=== PATIENT | male | born 1945 | race Caucasian/White ===

== ENCOUNTER 2022-06-17 15:12 | Inpatient (IN) | payer OTHER ==
[2022-06-17 16:14] LABS: Absolute Lymphocytes (CBC) 1.4 K/uL (0.7-4.9); Hematocrit 39.8 % (39.6-49.0); Lymphocytes % 22.4 % (15.3-44.8); MCV 96.7 fL (80-100); MPV 7.3 fL (7.6-11.3); RBC Red Blood Cell Count 4.11 M/uL (4.33-5.43)
[2022-06-17 16:18] LABS: Protime INR 1.09
[2022-06-17] MEDS ORDERED: AMIODARONE HCL 150 MG/3 ML INJ IV ONE (16:25)
[2022-06-17] MEDS ORDERED: D5W 100 ML IV ONE (16:26)
[2022-06-17 16:33] LABS: SARS-CoV-2 Antigen Rapid Res Negative (Negative)
[2022-06-17 16:36] LABS: Albumin 4.1 g/dL (3.4-5.0); Bilirubin Direct 0.2 mg/dL (0-0.2); Bilirubin Total 0.5 mg/dL (0.2-1.0); Magnesium 2.4 mg/dL (1.6-2.4); Protein, Total 7.4 g/dL (6.4-8.2); Troponin High Sensitivity 12.4 pg/mL (<58.9)
--- NOTE | 2022-06-17 16:56 | RAD REPORT ---
EXAM DESCRIPTION: RAD - Chest Single View - 06/17/2022 4:30 pm CLINICAL HISTORY: CHEST PAIN COMPARISON: No comparisons FINDINGS: Lines: None. Lungs: No evidence of edema or pneumonia. Pleural: No significant pleural effusions or pneumothorax. Cardiac: The heart size is within normal limits. Mediastinum: Within normal limits. Bones: No acute fractures. Other: None IMPRESSION: No acute cardiopulmonary disease.
[2022-06-17] MEDS ORDERED: AMIODARONE HCL 900 MG in Dextrose 5%-Water 482 ML IV SCH (17:00)
--- NOTE | 2022-06-17 18:26 | EDPHYS ---
Physician Documentation [facility] Name: Alexys Conroy Age: 77 yrs Sex: Male : 1945 Arrival Date: 06/17/2022 Time: 15:14 Bed 27 Private MD: ED Physician Roberto Carlos Arias HPI: 06/17 15:31 This 77 yrs old Male presents to ER via Ambulatory with complaints of afib. [facility] 15:31 Is a 77-year-old male with history of atrial fibrillation the presents emerged [facility] department with no complaints. Patient was evaluated by his medical social worker detected atrial fibrillation with RVR in office. Recommended the patient go to the ER for rate control. Patient has no chest pain, no fever, no abdominal pain, no shortness of breath.. Historical: - Allergies: 15:25 PENICILLINS; iw - Home Meds: 15:25 metoprolol tartrate 50 mg Oral tab 1 tab 2 times per day [Active]; Eliquis 5 mg oral iw tab 1 tab 2 times per day [Active]; Allopurinol 60 mg Oral once daily [Active]; - PMHx: 15:25 Atrial fibrillation; iw - PSHx: 15:25 right hip; right knee; left knee; iw - Social history:: Smoking status: Patient/guardian denies using tobacco, but has a distant history of tobacco abuse. ROS: 15:31 Constitutional: Negative for fever, chills, and weight loss, Cardiovascular: Negative [facility] for chest pain, palpitations, and edema, Respiratory: Negative for shortness of breath, cough, wheezing, and pleuritic chest pain. 15:31 All other systems are negative. Exam: 15:31 Constitutional: This is a well developed, well nourished patient who is awake, alert, jmm and in no acute distress. Head/Face: atraumatic. Eyes: EOMI, no conjunctival erythema appreciated ENT: Moist Mucus Membranes Neck: Trachea midline, Supple Chest/axilla: Normal chest wall appearance and motion. Respiratory: Normal respirations, no respiratory distress appreciated 15:31 Abdomen/GI: Non distended Back: Normal ROM Skin: General appearance color normal MS/ Extremity: Moves all extremities, no obvious deformities appreciated, no edema noted to the lower extremities Neuro: Awake and alert Psych: Behavior is normal, Mood is normal, Patient is cooperative and pleasant 15:31 Cardiovascular: Rate: tachycardic, Rhythm: irregularly irregular. Vital Signs: 15:23 BP 153 / 87; Pulse 107; Resp 18; Temp 98.7; Pulse Ox 99% on R/A; Weight 130.18 kg; iw Height 6 ft. 1 in. (185.42 cm); 16:11 BP 141 / 92; Pulse 111; Resp 15 S; Pulse Ox 100% on R/A; Pain 0/10; kc6 17:03 BP 126 / 87; Pulse 94; Resp 18 S; Pulse Ox 98% on R/A; kc6 17:57 BP 120 / 89; Pulse 92; Resp 19 S; Pulse Ox 99% on R/A; kc6 18:34 BP 132 / 99; Pulse 101; Resp 17 S; Pulse Ox 99% on R/A; Pain 0/10; kc6 15:23 Body Mass Index 37.86 (130.18 kg, 185.42 cm) iw MDM: 15:41 Patient medically screened. [facility] 16:59 Data reviewed:. [facility] 17:00 Differential diagnosis: arrythmia, dehydration. Consideration of Admission/Observation [facility] Patient was admitted/placed on observation. Management of patient was discussed with the following: Customer Experience Analyst: dank jones. I considered the following discharge prescriptions or medication management in the emergency department Medications were administered in the Emergency Department. See MAR. Counseling: I had a detailed discussion with the patient and/or guardian regarding: the historical points, exam findings, and any diagnostic results supporting the discharge/admit diagnosis, lab results, radiology results, the need for further work-up and treatment in the hospital. 06/17 15:31 Order name: Basic Metabolic Panel [facility] 06/17 15:31 Order name: CBC with Diff [facility] 06/17 15:31 Order name: LFT's [facility] 06/17 15:31 Order name: Magnesium [facility] 06/17 15:31 Order name: NT PRO-BNP [facility] 06/17 15:31 Order name: PT-INR [facility] 06/17 15:31 Order name: Troponin HS [facility] 06/17 15:32 Order name: SARS RAPID [facility] 06/17 16:16 Order name: CBC with Automated Diff; Complete Time: 16:16 [facility] 06/17 16:18 Order name: Protime (+INR); Complete Time: 16:47 EDMS 06/17 16:33 Order name: SARS-COV-2 Antigen Rapid; Complete Time: 16:47 EDMS 06/17 16:36 Order name: Basic Metabolic Panel; Complete Time: 16:47 EDMS 06/17 16:36 Order name: Liver (Hepatic) Function; Complete Time: 16:47 EDMS 06/17 16:36 Order name: Troponin High Sensitivity; Complete Time: 16:47 [facility]KY 06/17 15:31 Order name: XRAY Chest (1 view) [facility] 06/17 15:31 Order name: EKG; Complete Time: 15:32 [facility] 06/17 15:31 Order name: Cardiac monitoring; Complete Time: 16:02 [facility] 06/17 16:36 Order name: NT PRO-BNP; Complete Time: 16:47 EDMS 06/17 16:36 Order name: Magnesium; Complete Time: 16:47 [facility] 06/17 16:57 Order name: RAD; Complete Time: 16:57 [facility] 06/18 03:20 Order name: CBC with Automated Diff [facility] 06/18 03:45 Order name: Basic Metabolic Panel [facility] 06/18 03:45 Order name: Phosphorus [facility] 06/18 03:45 Order name: Troponin High Sensitivity [facility] 06/18 03:45 Order name: Lipid Profile [facility] 06/18 03:45 Order name: Magnesium [facility] 06/18 03:45 Order name: Thyroid Stimulating Hormone [facility] 06/18 03:58 Order name: T4 Free [facility] 06/17 15:31 Order name: EKG - Nurse/Tech; Complete Time: 16:02 [facility] 06/17 15:31 Order name: IV Saline Lock; Complete Time: 16:02 [facility] 06/17 15:31 Order name: Labs collected and sent; Complete Time: 16:02 [facility] 06/17 15:31 Order name: O2 Per Protocol; Complete Time: 16:02 [facility] 06/17 15:31 Order name: O2 Sat Monitoring; Complete Time: 16:02 [facility] Administered Medications: 16:26 Drug: amiodarone 150 mg Volume: 100 ml; Route: IVPB; Infused Over: 10 mins; Site: left kc6 antecubital; 16:39 Follow up: Response: No adverse reaction; IV Status: Completed infusion ll1 16:43 Drug: amiodarone 900 mg, D5W 500 ml Route: IVPB; Rate: 1 mg/min; Site: left antecubital;kc6 18:34 Follow up: Response: No adverse reaction; IV Status: Infusion continued upon admission kc6 Disposition: 18:33 Co-signature as Attending Physician, Roberto Carlos Arias DO I was immediately available on-site ms3 in the Emergency Department for consultation in the care of the patient. Disposition Summary: 06/17/22 18:25 Hospitalization Ordered Hospitalization Status: Inpatient Admission [facility] Provider: Pedro Montes Condition: Stable jmm Problem: new jmm Symptoms: have improved jmm Bed/Room Type: Standard [facility] Location: Telemetry/MedSurg (Inpatient)(06/18/22 10:43) Room Assignment: [facility](06/18/22 10:43) Diagnosis - Atrial fibrillation with RVR [facility] Forms: - Medication Reconciliation Form jmm - SBAR form [facility] Signatures: Dispatcher [employer] Estephanie Robbins, RN RN Vaughn Campbell PA PA m Nini Acharya, RN RN Negin Christian, PHIL RN cg Roberto Carlos Arias DO DO ms3 Suzie Christie RN RN kc6 Tom Neves RN ll1 Corrections: (The following items were deleted from the chart) 19:16 18:25 Telemetry/MedSurg (Inpatient) [facility] 19:16 18:25 [facility] 06/18 10:43 06/17 19:16 [facility] ER HOLD cg dw 06/18 10:43 06/17 19:16 ERHOLD- cg
--- NOTE | 2022-06-17 18:26 | ER ---
Nurse's Notes [facility] Name: Alexys Conroy Age: 77 yrs Sex: Male : 1945 Arrival Date: 06/17/2022 Time: 15:14 Bed 27 Private MD: Diagnosis: Atrial fibrillation with RVR Presentation: 06/17 15:22 Chief complaint: Patient states: saw Tommy Tuesday and had a med change, he doubled iw his metoprolol, today he was told he wanted him to come to ER and be out on amiodarone . He is three months late on his annual exam and his HR was higher that usual. 15:22 Method Of Arrival: Ambulatory iw 15:22 Acuity: DIANA 3 iw 15:23 Coronavirus screen: At this time, the client does not indicate any symptoms associated iw with coronavirus-19. Ebola Screen: Patient negative for fever greater than or equal to 101.5 degrees Fahrenheit, and additional compatible Ebola Virus Disease symptoms Patient denies exposure to infectious person. Patient denies travel to an Ebola-affected area in the 21 days before illness onset. No symptoms or risks identified at this time. Initial Sepsis Screen: Does the patient meet any 2 criteria? No. Patient's initial sepsis screen is negative. Does the patient have a suspected source of infection? No. Patient's initial sepsis screen is negative. Risk Assessment: Do you want to hurt yourself or someone else? Patient reports no desire to harm self or others. Onset of symptoms. Historical: - Allergies: 15:25 PENICILLINS; iw - Home Meds: 15:25 metoprolol tartrate 50 mg Oral tab 1 tab 2 times per day [Active]; Eliquis 5 mg oral iw tab 1 tab 2 times per day [Active]; Allopurinol 60 mg Oral once daily [Active]; - PMHx: 15:25 Atrial fibrillation; iw - PSHx: 15:25 right hip; right knee; left knee; iw - Social history:: Smoking status: Patient/guardian denies using tobacco, but has a distant history of tobacco abuse. Screenin:10 [facility] ED Fall Risk Assessment (Adult) History of falling in the last 3 months, kc6 including since admission No falls in past 3 months (0 pts) Confusion or Disorientation No (0 pts) Intoxicated or Sedated No (0 pts) Impaired Gait No (0 pts) Mobility Assist Device Used Yes (1 pt) Altered Elimination No (0 pt) Score/Fall Risk Level 0 - 2 = Low Risk Oriented to surroundings, Maintained a safe environment, Educated pt \T\ family on fall prevention, incl call for assistance when getting out of bed, Assessed \T\ reinforced patient's understanding of fall precautions, Provided non-skid footwear, Hourly rounding (assess needs \T\ fall precautionary measures) done. Abuse screen: Denies threats or abuse. Denies injuries from another. Nutritional screening: No deficits noted. Tuberculosis screening: No symptoms or risk factors identified. Assessment: 16:09 General: Appears in no apparent distress. comfortable, Behavior is calm, cooperative, kc6 appropriate for age. Pain: Denies pain. Neuro: Chang Agitation-Sedation Scale (RASS): 0 - Alert and Calm Level of Consciousness is awake, alert, obeys commands, Oriented to person, place, time, situation, Appropriate for age. Cardiovascular: Denies chest pain, lightheadedness, nausea, palpitations, shortness of breath, Heart tones S1 S2 present Capillary refill < 3 seconds Rhythm is atrial fibrillation with rapid ventricular response. Respiratory: Airway is patent Trachea midline Respiratory effort is even, unlabored, Respiratory pattern is regular, symmetrical. GI: No signs and/or symptoms were reported involving the gastrointestinal system. : No signs and/or symptoms were reported regarding the genitourinary system. EENT: No signs and/or symptoms were reported regarding the EENT system. Derm: No signs and/or symptoms reported regarding the dermatologic system. Skin is intact, Skin is pink, warm \T\ dry. Musculoskeletal: No signs and/or symptoms reported regarding the musculoskeletal system. Circulation, motion, and sensation intact. Capillary refill < 3 seconds, Range of motion: intact in all extremities. 17:03 Reassessment: Patient appears in no apparent distress at this time. No changes from kc6 previously documented assessment. Patient and/or family updated on plan of care and expected duration. Pain level reassessed. Patient is alert, oriented x 3, equal unlabored respirations, skin warm/dry/pink. Patient denies pain at this time. 17:57 Reassessment: Patient appears in no apparent distress at this time. No changes from kc6 previously documented assessment. Patient and/or family updated on plan of care and expected duration. Pain level reassessed. Patient is alert, oriented x 3, equal unlabored respirations, skin warm/dry/pink. Patient denies pain at this time. Vital Signs: 15:23 BP 153 / 87; Pulse 107; Resp 18; Temp 98.7; Pulse Ox 99% on R/A; Weight 130.18 kg; iw Height 6 ft. 1 in. (185.42 cm); 16:11 BP 141 / 92; Pulse 111; Resp 15 S; Pulse Ox 100% on R/A; Pain 0/10; kc6 17:03 BP 126 / 87; Pulse 94; Resp 18 S; Pulse Ox 98% on R/A; kc6 17:57 BP 120 / 89; Pulse 92; Resp 19 S; Pulse Ox 99% on R/A; kc6 18:34 BP 132 / 99; Pulse 101; Resp 17 S; Pulse Ox 99% on R/A; Pain 0/10; kc6 15:23 Body Mass Index 37.86 (130.18 kg, 185.42 cm) iw ED Course: 15:14 Patient arrived in ED. as 15:23 Triage completed. iw 15:24 Arm band placed on. iw 15:29 Vaughn Campbell PA is PHCP. [facility] 15:29 Roberto Carlos Arias DO is Attending Physician. [facility] 16:02 Suzie Christie, PHIL is Primary Nurse. kc6 16:02 Basic Metabolic Panel Sent. kc6 16:02 CBC with Diff Sent. kc6 16:02 LFT's Sent. kc6 16:02 Magnesium Sent. kc6 16:02 NT PRO-BNP Sent. kc6 16:02 PT-INR Sent. kc6 16:03 Troponin HS Sent. kc6 16:09 SARS RAPID Sent. kc6 16:11 Patient has correct armband on for positive identification. Placed in gown. Bed in low kc6 position. Call light in reach. Side rails up X2. Adult w/ patient. 18:25 Pedro Montes is Hospitalizing Provider. [facility] 19:41 No provider procedures requiring assistance completed. Patient admitted, IV remains in as6 place. 06/18 04:17 Primary Nurse role handed off by Suzie Christie, PHIL 10:44 Celia Sarmiento, RN is Primary Nurse. ko1 Administered Medications: 06/17 16:26 Drug: amiodarone 150 mg Volume: 100 ml; Route: IVPB; Infused Over: 10 mins; Site: left kc6 antecubital; 16:39 Follow up: Response: No adverse reaction; IV Status: Completed infusion ll1 16:43 Drug: amiodarone 900 mg, D5W 500 ml Route: IVPB; Rate: 1 mg/min; Site: left antecubital;kc6 18:34 Follow up: Response: No adverse reaction; IV Status: Infusion continued upon admission kc6 Medication: 19:41 VIS not applicable for this client. as6 Outcome: 18:25 Decision to Hospitalize by Provider. [facility] 19:41 Admitted to ER Hold. Please see [facility] for further documentation. as6 19:41 Condition: stable 19:41 Instructed on the need for admit. 06/18 11:25 Patient left the ED. ko1 Signatures: Vaughn Campbell PA PA jmm Martinez, Amelia as Williams, Irene, RN RN iw Tom Neves RN RN ll1 Sneha Graf Ashby, RN RN as6 Suzie Christie RN RN kc6 Celia Sarmiento, RN RN ko1 Corrections: (The following items were deleted from the chart) 06/17 15:25 15:22 Chief complaint: Patient states: saw Raslan Tuesday and had a med change, today iw he was told he wanted him to come to ER and be out on amiodarone iw
--- NOTE | 2022-06-17 19:25 | P.HP ---
Certification for Inpatient Patient admitted to: Inpatient With expected LOS: <2 Midnights Patient will require the following post-hospital care: None Practitioner: I am a practitioner with admitting privileges, knowledge of patient current condition, hospital course, and medical plan of care. Services: Services provided to patient in accordance with Admission requirements found in Title 42 Section 412.3 of the Code of Federal Regulations Patient History Date of Service: 06/17/22 Reason for admission: Afib RVR History of Present Illness: Patient is a 77-year-old male with past medical history of hypertension, gout, and atrial fibrillation on Eliquis who was sent to the emergency department by Dr. Sanders. Patient was seen by cardiology 2 days ago, was noted to be in afib RVR, and had his metoprolol doubled. His rate has not improved so Tommy sent him to be started on IV amiodarone. EKG showed A-fib RVR with a rate of 109. Patient is asymptomatic. Labs are unremarkable. Patient was started on amiodarone drip in emergency department and will be admitted for further management. 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 - Family History Father -: Heart disease, Cancer Notes: father with skin, lymph system metastasized throughout lungs - Social History Smoking Status: Former smoker Alcohol use: Yes CD- Drugs: No Caffeine use: Yes Place of Residence: Home Review of Systems Unremarkable Physical Examination - Vital Signs Temperature: 98.7 F Blood Pressure: 132/99 Pulse: 101 Respirations: 17 Pulse Ox (%): 99 - Physical Exam General: Alert, In no apparent distress HEENT: Atraumatic, EOMI, Sclerae nonicteric Neck: Supple, 2+ carotid pulse no bruit Respiratory: Clear to auscultation bilaterally, Normal air movement Cardiovascular: Irregular heart rate/rhythm Gastrointestinal: Normal bowel sounds, No tenderness Musculoskeletal: No tenderness Integumentary: No rashes Neurological: Normal speech, Normal affect - Studies Laboratory Data (last 24 hrs) 06/17/22 15:57: PT 12.0, INR 1.09 06/17/22 15:57: WBC 6.10, Hgb 13.4 L, Hct 39.8, Plt Count 280 06/17/22 15:57: Sodium 133 L, Potassium 4.0, BUN 9, Creatinine 0.82, Glucose 175 H, Magnesium 2.4, Total Bilirubin 0.5, AST 20, ALT 32, Alkaline Phosphatase 63 Assessment and Plan - Problems (Diagnosis) (1) Atrial fibrillation with rapid ventricular response Current Visit: Yes Status: Acute - Plan Patient is admitted for further management of A-fib RVR. Continue amiodarone drip. Monitor on telemetry. Cardiology consult, echo ordered. Continue home Eliquis 5mg twice daily. Trend troponin. Monitor and replete electrolytes per protocol. Reconcile and continue home medications. Full code. Discharge Plan: Home Plan to discharge in: 48 Hours - Advance Directives Does patient have a Living Will: Yes Does patient have a Durable POA for Healthcare: Yes - Code Status/Comfort Care Code Status Assessed: Yes Code Status: Full Code Physician Review: Patient Assessed, Agree with Above Assessment and Plan Critical Care: No Time Spent Managing Pts Care (In Minutes): 50
[2022-06-17] MEDS ORDERED: ACETAMINOPHEN 500 MG TAB PO PRN (19:26)
[2022-06-17 19:42] VITALS: BMI 37.8
[2022-06-17] MEDS: APIXABAN 5 MG TABLET PO SCH (20:10)
[2022-06-18 03:12] LABS: Absolute Lymphocytes (CBC) 1.8 K/uL (0.7-4.9); Hematocrit 36.1 % (39.6-49.0); Lymphocytes % 26.2 % (15.3-44.8); MCV 97.1 fL (80-100); MPV 7.7 fL (7.6-11.3); RBC Red Blood Cell Count 3.72 M/uL (4.33-5.43)
[2022-06-18 03:31] LABS: Magnesium 2.2 mg/dL (1.6-2.4); Potassium 3.6 mmol/L (3.5-5.1); Troponin High Sensitivity 15.8 pg/mL (<58.9)
[2022-06-18 03:45] LABS: Thyroid Stimulating Hormone 4.1 uIU/mL (0.358-3.740)
[2022-06-18] MEDS ORDERED: POTASSIUM CL SA 10 MEQ TAB PO ONE ×2 (07:30→08:21)
[2022-06-18] MEDS ORDERED: INFLUENZA VACCINE (for 6+ mo) 0.5 ML DOSE IMVAC ONE (08:00)
[2022-06-18] MEDS ORDERED: PNEUMOCOCCAL VACCINE 0.5 ML IMVAC ONE (08:00)
[2022-06-18] MEDS ORDERED: APIXABAN 5 MG TABLET ONE (08:21)
[2022-06-18] MEDS: APIXABAN 5 MG TABLET PO SCH (09:00)
[2022-06-18] MEDS ORDERED: NA CHLORIDE 0.9% 0 ML ONE (10:26)
[2022-06-18 11:55] VITALS: O2SAT 99
--- NOTE | 2022-06-18 13:21 | EKG ---
Test Date: 2022-06-17 Test Time: 15:37:29 Die Mechanic: YANDEL MEASUREMENT RESULTS: Intervals: Rate: 109 [place]: QRSD: 96 QT: 338 QTc: 455 [place]: P: [place]: QRS: -65 T: 81 INTERPRETIVE STATEMENTS: Atrial fibrillation with rapid ventricular response Left anterior fascicular block Possible Lateral infarct, age undetermined Abnormal ECG Compared to ECG 08/22/2015 09:28:35 Myocardial infarct finding now present Sinus rhythm no longer present Atrial premature complex(es) no longer present Electronically Signed On 06-18-22 13:18:28 [employer]ON WORKER FOREMAN by Kaushik Sanders
--- NOTE | 2022-06-18 15:45 | P.PN ---
Subjective Date of Service: 06/18/22 Chief Complaint: Afib RVR Patient has no new complaint. He remained in atrial fibrillation but rate controlled on the amiodarone drip. Physical Examination - Vital Signs Temperature: 97.2 F Blood Pressure: 131/85 Pulse: 97 Respirations: 16 Pulse Ox (%): 91 - Studies Laboratory Data (last 24 hrs) 06/17/22 15:57: PT 12.0, INR 1.09 06/17/22 15:57: WBC 6.10, Hgb 13.4 L, Hct 39.8, Plt Count 280 06/17/22 15:57: Sodium 133 L, Potassium 4.0, BUN 9, Creatinine 0.82, Glucose 175 H, Magnesium 2.4, Total Bilirubin 0.5, AST 20, ALT 32, Alkaline Phosphatase 63 Assessment And Plan - Current Problems (Diagnosis) (1) Atrial fibrillation with rapid ventricular response Current Visit: Yes Status: Acute - Plan Physical Exam General: Alert, In no apparent distress Neck: Supple, no elevated JVD. Respiratory: Clear to auscultation bilaterally, Normal air movement Cardiovascular: Irregular rhythm, normal rate Gastrointestinal: Normal bowel sounds, No tenderness Musculoskeletal: No tenderness Integumentary: No rashes Neurological: Normal speech, Normal affect> Plan: Plan of care discussed with cardiology. Continue amiodarone drip Continue Eliquis. Metoprolol is on hold. We will watch his blood pressure with amiodarone before resuming any antihypertensive. Plan is to transition amiodarone intake to oral after 24 hours. Patient is currently asymptomatic. Cardiology to follow.
[2022-06-18 16:23] VITALS: BP 160/100; TEMP 97.5
--- NOTE | 2022-06-18 16:47 | P.DS ---
Admission Date: 06/17/22 Discharge Date: 06/18/22 Disposition: ROUTINE DISCHARGE Discharge Condition: FAIR Reason for Admission: Afib RVR - Problems (1) Atrial fibrillation with rapid ventricular response Current Visit: Yes Status: Acute (2) Hypertension Current Visit: Yes Status: Acute Brief History of Present Illness: Patient is a 77-year-old male with past medical history of hypertension, gout, and atrial fibrillation on Eliquis who was sent to the emergency department by Dr. Sanders. Patient was seen by cardiology 2 days prior, was noted to be in afib RVR, and had his metoprolol doubled. His heart rate did not improved so Tommy sent him to be to the ED for amiodarone drip. EKG in the ED showed A-fib RVR with a rate of 109. Patient asymptomatic. Labs are unremarkable. Patient started on amiodarone drip and hospitalized for further management. Hospital Course: Patient was treated with amiodarone drip. His heart rate improved but he remained in atrial fibrillation. He completed 24 hours of the amiodarone drip. He was seen and evaluated by cardiology Dr. Sanders who recommended discharge with oral amiodarone and to continue his Eliquis and metoprolol. Patient discharged per cardiology recommendation. Vital Signs/Physical Exam: Temp Pulse Resp BP Pulse Ox 97.5 F 100 H 16 160/100 H 94 06/18/22 16:00 06/18/22 16:00 06/18/22 16:00 06/18/22 16:00 06/18/22 16:00 General: Alert, In no apparent distress, Oriented x3 HEENT: PERRLA Neck: JVD not distended Respiratory: Clear to auscultation bilaterally, Normal air movement Cardiovascular: No edema, Normal S1 S2, Irregular heart rate/rhythm Gastrointestinal: Soft and benign, Non-distended Musculoskeletal: No swelling Integumentary: No rashes, No cyanosis Neurological: Normal strength at 5/5 x4 extr Laboratory Data at Discharge: WBC 7.00 K/uL (4.3-10.9) 06/18/22 02:44 Hgb 12.1 g/dL (13.6-17.9) L D 06/18/22 02:44 Hct 36.1 % (39.6-49.0) L 06/18/22 02:44 Plt Count 260 K/uL (152-406) 06/18/22 02:44 PT 12.0 SECONDS (9.5-12.5) 06/17/22 15:57 INR 1.09 06/17/22 15:57 Sodium 137 mmol/L (136-145) D 06/18/22 02:44 Potassium 3.6 mmol/L (3.5-5.1) 06/18/22 02:44 BUN 10 mg/dL (7-18) 06/18/22 02:44 Creatinine 0.82 mg/dL (0.70-1.30) 06/18/22 02:44 Glucose 166 mg/dL (74-106) H 06/18/22 02:44 Phosphorus 4.0 mg/dL (2.5-4.9) 06/18/22 02:44 Magnesium 2.2 mg/dL (1.6-2.4) 06/18/22 02:44 Total Bilirubin 0.5 mg/dL (0.2-1.0) 06/17/22 15:57 AST 20 U/L (15-37) 06/17/22 15:57 ALT 32 U/L (16-61) 06/17/22 15:57 Alkaline Phosphatase 63 U/L (45-117) 06/17/22 15:57 Triglycerides 105 mg/dL (<150) 06/18/22 02:44 Cholesterol 234 mg/dL (<200) H 06/18/22 02:44 HDL Cholesterol 79 mg/dL (40-60) H 06/18/22 02:44 Cholesterol/HDL Ratio 2.96 06/18/22 02:44 Home Medications: Allopurinol 60 mg PO DAILY 06/17/22 Apixaban [Eliquis] 5 mg PO BID 06/17/22 Metoprolol Tartrate 50 mg PO BID 06/17/22 Amiodarone HCl [Cordarone*] 200 mg PO BID #60 tab 06/18/22 New Medications: Amiodarone HCl [Cordarone*] 200 mg PO BID #60 tab Diet: AHA Activity: Ad william Followup: Justus Constantino MD [Primary Care Provider] - Kaushik Sanders MD [ACTIVE - CAN ADMIT] - 1-2 Weeks Time spent managing pt's care (in minutes): 28
--- NOTE | 2022-06-18 17:23 | CON ---
Date of Consultation: 06/18/2022 Reason For Consultation: Rapid atrial fibrillation. History Of Present Illness: This is a 77-year-old male, well known to me. He was evaluated in the [facility] earlier this past week. He was found to be in atrial fibrillation with rapid ventricular respo nse. Metoprolol was started and titrated, and revisited with him and he was still in atrial fibrilla tion with rapid ventricular response, so the patient was sent to the ER and admitted, started on IV a miodarone and his heart rate is much better now. Denies having any chest pain or shortness of breath . Past Medical History: Hypertension, atrial fibrillation. Medications: Refer to reconciliation sheet for detailed list. Allergies: PENICILLIN. Family History: No premature coronary artery disease or cancer. Social History: He does not smoke or drink. Does not use any drugs. Review of Systems: All systems reviewed and they were negative except what mentioned in HPI. Physical Examination: Vital Signs: Reviewed. Head and Neck: Pupils are equal, reactive to light. Intact eye movements. No JVD. No cervical lym phadenopathy. Neck is supple. Thyroid is not enlarged. Lungs: Clear to auscultation bilaterally. No rhonchi, wheezing, or crackles. No accessory muscle u se. Heart: Irregularly irregular. No extra sounds. Abdomen: Soft, nontender. Bowel sounds positive. No organomegaly. No masses or hernia. No rigidi ty or rebound. Extremities: No clubbing or cyanosis. Intact pulses. Skin: No rash. Neurologic: Alert, awake, oriented x3. No acute focal deficits appreciated. Investigations: BUN 10, creatinine 0.82, and hemoglobin is 12. TSH was 4.1, and LDL cholesterol is 134, HDL is 79. Assessment And Recommendations: 1.Atrial fibrillation with rapid ventricular response. Continue the full 24 hours load of amiodaron e and then switch him to oral 200 mg twice a day. Continue metoprolol and apixaban. The patient can be released later today once the IV amiodarone infusion is completed. 2.Dyslipidemia. We will discuss with him the treatment options and recommend to start atorvastatin 40 mg at bedtime. 3.Hypertension. Blood pressure is controlled. SR/MODL Voice ID: [id number] Report ID: [id number]
[2022-06-18] MEDS ORDERED: AMIODARONE HCL 200 MG TAB PO SCH (21:00)
[2022-06-19] MEDS ORDERED: ALLOPURINOL PO SCH (09:00)
== END 2022-06-18 17:37 | disposition home or self-care (01) | DRG 310 ==
LOC: ER 15:12 → ERHOLD 19:16 → 2ND 06-18 10:57
PROVIDERS: ADMIT Internal Medicine; ATTEND Internal Medicine
DX: I48.91 Unspecified atrial fibrillation (principal); I10 Essential (primary) hypertension; M10.9 Gout, unspecified; E78.5 Hyperlipidemia, unspecified; M19.90 Unspecified osteoarthritis, unspecified site; Z79.01 Long term (current) use of anticoagulants; Z79.899 Other long term (current) drug therapy; Z88.0 Allergy status to penicillin; Z87.891 Personal history of nicotine dependence; Z20.822 Contact with and (suspected) exposure to COVID-19; Z82.49 Family history of ischemic heart disease and other diseases of the circulatory system; Z80.8 Family history of malignant neoplasm of other organs or systems
CPT/HCPCS: 36415; 71045; 80048; 80061; 80076; 83735; 83880; 84100; 84439; 84443; 84484; 85025; 85610; 87811; 93005; 96365; 96366; 99285; J0282; J7030; J7060

== ENCOUNTER 2022-11-24 11:30 | Day surgery (SDC) | payer OTHER ==
[2022-11-19 11:00] LABS: Absolute Lymphocytes (CBC) 1.7 K/uL (0.7-4.9); Hematocrit 39.2 % (39.6-49.0); Lymphocytes % 20.7 % (15.3-44.8); MCV 96.6 fL (80-100); MPV 7.2 fL (7.6-11.3); Platelets 314 thou/uL (152-406); RBC Red Blood Cell Count 4.06 M/uL (4.33-5.43)
[2022-11-19 11:12] LABS: Potassium 4.2 mEq/L (3.5-5.1)
[2022-11-19 11:18] LABS: Protime INR 1.04
[2022-11-24] MEDS ORDERED: NA CHLORIDE 0.9% 500 ML ONE (11:56)
[2022-11-24 13:02] VITALS: BP 148/94; TEMP 98.7; O2SAT 97
[2022-11-24] MEDS ORDERED: METOPROLOL TARTRATE 5 MG/5 ML INJ IV ONE (13:07)
[2022-11-24] MEDS ORDERED: HYDRALAZINE HCL 20 MG/ML VIAL ONE (13:07)
[2022-11-24] MEDS ORDERED: MIDAZOLAM HCL 10 ML ONE (13:07)
[2022-11-24] MEDS ORDERED: ATROPINE SULF 1 MG/10 ML SYR IV ONE (13:08)
[2022-11-24] MEDS ORDERED: SIMPLE SYRUP 20 ML, LIDOCAINE 2% VISCOUS ORAL 20 ML MM ONE ×2 (13:30)
[2022-11-24] MEDS ORDERED: AMIODARONE HCL 150 MG in D5W 100 ML IV STA (14:06)
--- NOTE | 2022-11-25 07:07 | TEE ---
TRANSESOPHAGEAL ECHOCARDIOGRAM REPORT CARDIOLOGY DEPARTMENT DATE OF STUDY: 11/24/2022 HEIGHT: 6'1" WEIGHT: 265 lbs DIAGNOSIS: ATRIAL FIBRILLATION WINDOWS SYSTEMS ADMINISTRATOR COMMENTS: CHRISTOPHER CARDIAC HISTORY: CATHERIZATION: SURGERY: PROSTHETIC VALVE: PACEMAKER: 2 DIMENSIONAL ASSESSMENT: RIGHT ATRIUM: LEFT ATRIUM: RIGHT VENTRICLE: LEFT VENTRICLE: TRICUSPID VALVE: MITRAL VALVE: PULMONIC VALVE: AORTIC VALVE: PERICARDIAL EFFUSION: AORTIC ROOT: EJECTION FRACTION: 55-60 % LEFT VENTRICULAR WALL MOTION: DOPPLER/COLOR FLOW: COMMENTS: 1. TRANSESOPHAGEAL ECHOCARDIOGRAM PROBE WAS INSERTED, NO DIFFICULTY. 2. NO LEFT ATRIAL APPENDAGE THROMBUS 3. NORMAL LEFT VENTRICULAR EJECTION FRACTION 55-60% TECHNOLOGIST: GRACY PUGH
--- NOTE | 2022-11-29 13:22 | EKG ---
Test Date: 2022-11-24 Test Time: 14:07:20 Lathe Machinist: JOSE MEASUREMENT RESULTS: Intervals: Rate: 81 DC: 246 QRSD: 104 QT: 414 QTc: 480 Agency: P: 68 DC: 246 QRS: -68 T: 48 INTERPRETIVE STATEMENTS: Sinus rhythm with 1st degree AV block Left axis deviation Prolonged QT Abnormal ECG Compared to ECG 06/17/2022 15:37:29 First degree AV block now present Left-axis deviation now present Prolonged QT interval now present Atrial fibrillation no longer present Left anterior fascicular block no longer present Myocardial infarct finding no longer present Electronically Signed On 11-29-22 13:13:28 CDT by Kaushik Sanders
== END 2022-11-24 15:20 | disposition home or self-care (01) ==
LOC: CCL 11:30
PROVIDERS: ATTEND Internal Medicine
DX: I48.0 Paroxysmal atrial fibrillation (principal); I35.0 Nonrheumatic aortic (valve) stenosis; I10 Essential (primary) hypertension; I71.21 Aneurysm of the ascending aorta, without rupture; Z87.891 Personal history of nicotine dependence; Z79.01 Long term (current) use of anticoagulants; Z79.899 Other long term (current) drug therapy; Z88.0 Allergy status to penicillin
CPT/HCPCS: 93005; 93312; 85025; 80048; 36415; 85610; 85730; 92960; J2250; J0282; J7040; J0360; J0461

== ENCOUNTER 2023-08-19 19:23 | Emergency (ER) | payer OTHER ==
--- NOTE | 2023-08-19 20:12 | RAD REPORT ---
EXAM DESCRIPTION: CT - Head C Spine Mpr Wo Con - 08/19/2023 7:56 pm CLINICAL HISTORY: Head and neck injury status post fall. Head and neck pain COMPARISON: None. TECHNIQUE: Computed axial tomography of the head and cervical spine was obtained. Sagittal and coronal reconstruction was performed. All CT scans are performed using dose optimization technique as appropriate and may include automated exposure control or mA/KV adjustment according to patient size. FINDINGS: Posterior scalp hematoma. Large opened right occipital lobe infarction. An intracranial bleed is not seen. The ventricles are normal in caliber. An extra-axial fluid collection is not noted. Small amount of fluid within sphenoid sinus A cervical fracture is not visualized. No dislocation is noted. Mild posterior subluxation C5 on C6 with disc space narrowing and osteophytes. Mild posterior subluxation C6 on C7 with disc space narrowing and osteophytes. Mild anterior subluxation C7 on T1. Significant soft tissue swelling is not seen. Presumably this is chronic. IMPRESSION: No acute intracranial abnormality is seen. A cervical fracture is not visualized. If the patient continues to have symptoms to suggest intracranial /spinal cord/ligamentous pathology then MRI would be recommended
--- NOTE | 2023-08-19 20:33 | ER ---
Nurse's Notes [facility] Name: Alexys Conroy Age: 78 yrs Sex: Male : 1945 Arrival Date: 08/19/2023 Time: 19:23 Bed 3 Private MD: Diagnosis: Unspecified injury of head, initial encounter;Fall (on) (from) other stairs and steps Presentation: 08/18 19:29 Chief complaint: EMS states: pt fell backwards while climbing the stairs, about 8 rv steps, hit the back of the head, sustained laceration, bleeding controlled, no LOC. takes Eliquis for Atrial Fibrillation. Care prior to arrival: None. Mechanism of Injury: Fall down 8 steps. Trauma event details: Injury occurred in the [facility], Injury occurred: at home. Injury occurred: August 19, 2023. 19:29 Acuity: DIANA 2 rv 19:29 Method Of Arrival: EMS: [facility] rv 19:37 Coronavirus screen: At this time, the client does not indicate any symptoms associated rv with coronavirus-19. Ebola Screen: No symptoms or risks identified at this time. Initial Sepsis Screen: Does the patient meet any 2 criteria? No. Patient's initial sepsis screen is negative. Does the patient have a suspected source of infection? No. Patient's initial sepsis screen is negative. Risk Assessment: Do you want to hurt yourself or someone else? Patient reports no desire to harm self or others. Onset of symptoms was August 19, 2023. Trauma Activation: Alert Physician: ED Physician; Name: ; Notified At: ; Arrived At: Physician: General Surgeon; Name: ; Notified At: ; Arrived At: Physician: Radiology; Name: ; Notified At: ; Arrived At: Physician: Respiratory; Name: ; Notified At: ; Arrived At: Physician: Lab; Name: ; Notified At: ; Arrived At: Historical: - Allergies: 19:37 PENICILLINS; rv - PMHx: 19:37 Atrial fibrillation; rv - PSHx: 19:37 left knee; right knee; Right hip; rv - Immunization history: Last tetanus immunization: < 5 years ago. - Infectious Disease History:: Denies. - Social history:: Smoking status: Patient denies any tobacco usage or history of. Screenin:29 Abuse screen: Denies threats or abuse. Denies injuries from another. Tuberculosis rv screening: No symptoms or risk factors identified. 19:36 [facility] ED Fall Risk Assessment (Adult) History of falling in the last 3 months, rv including since admission Yes- single mechanical fall (1 pt) Confusion or Disorientation Intoxicated or Sedated Yes (3 pts) Score/Fall Risk Level 3 or more points = High Risk Oriented to surroundings, Maintained a safe environment, Educated pt \T\ family on fall prevention, incl call for assistance when getting out of bed, Provided non-skid footwear. Nutritional screening: No deficits noted. Primary Survey: 19:29 NO uncontrolled hemorrhage observed. Breathing/Chest: Spontaneous respiratory effort, rv equal unlabored respirations, breath sounds clear bilaterally, regular pattern, symmetrical chest rise and fall. Circulation: No external hemorrhage present. Regular and strong central pulse, skin warm/dry/normal color. Disability Pupils are equal, round, reactive to light and accommodation. Client is alert. Exposure/Environment: All clothing and personal items were removed. Forensic evidence collection is not deemed to be indicated at this time. Items placed in patient belonging bag. There is no evidence of uncontrolled external bleeding. Obvious injury(ies) are noted at this time: laceration to back of the head A warming method has been applied: A warm blanket has been provided to the patient. 20:50 Reassessment Breathing: Spontaneous respiratory effort, equal unlabored respirations, rv breath sounds clear bilaterally, regular pattern with symmetrical chest rise and fall. Secondary Survey: 19:29 HEENT: No deficits noted. Gastrointestinal: No deficits noted. : No deficits noted. rv Musculoskeletal: No deficits noted. Assessment: 19:29 General: Appears comfortable, Behavior is calm, cooperative. Pain: Complains of pain in rv scalp. Neuro: Level of Consciousness is awake, alert, obeys commands, Oriented to person, place, time, situation. Cardiovascular: Capillary refill < 3 seconds Patient's skin is warm and dry. Respiratory: Airway is patent Respiratory effort is even, unlabored. GI: No signs and/or symptoms were reported involving the gastrointestinal system. : No signs and/or symptoms were reported regarding the genitourinary system. Musculoskeletal: Circulation, motion, and sensation intact. Range of motion: intact in all extremities. Vital Signs: 19:29 BP 153 / 83; Pulse 70; Resp 17; Temp 98; Pulse Ox 100% ; Weight 108.41 kg; Height 6 ft. rv 0 in. ; 20:51 BP 152 / 79; Pulse 71; Resp 16; Temp 98; Pulse Ox 99% on R/A; rv 19:29 Body Mass Index 32.41 (108.41 kg, 182.88 cm) rv Ileana Coma Score: 19:29 Eye Response: spontaneous(4). Motor Response: obeys commands(6). Verbal Response: rv oriented(5). Total: 15. 20:51 Eye Response: spontaneous(4). Motor Response: obeys commands(6). Verbal Response: rv oriented(5). Total: 15. Trauma Score (Adult): 19:29 Eye Response: spontaneous(1); Verbal Response: oriented(1); Motor Response: obeys rv commands(2); Systolic BP: > 89 mm Hg(4); Respiratory Rate: 10 to 29 per min(4); Ileana Score: 15; Trauma Score: 12 ED Course: 19:24 Patient arrived in ED. cm10 19:28 Gus Tsai, PHIL is Primary Nurse. rv 19:29 Patient has correct armband on for positive identification. rv 19:33 Triage completed. rv 19:36 Client placed on continuous cardiac and pulse oximetry monitoring. NIBP monitoring rv applied. field irrigation worker on. 19:36 No provider procedures requiring assistance completed. rv 19:37 Arm band placed on right wrist. rv 19:37 Thermoregulation: warm blanket given to patient. rv 19:47 Milagros De La Cruz FNP-C is [facility]. kb 19:47 Fred Zhang MD is Attending Physician. kb 19:56 CT Head C Spine In Process Unspecified. EDMS 20:32 Fred Zhang MD is Referral Physician. kb 20:51 Patient did not have IV access during this emergency room visit. rv Administered Medications: No medications were administered Medication: 20:51 VIS not applicable for this client. rv Outcome: 20:33 Discharge ordered by . kb 20:50 Discharged to home ambulatory, with family, rv 20:50 Condition: good 20:50 Discharge instructions given to patient, family, Instructed on discharge instructions, follow up and referral plans. Demonstrated understanding of instructions, follow-up care, wound care, 20:52 Patient left the ED. rv Signatures: Dispatcher [employer] EDMS Jono Milagros, BRIQUETTE MOLDER-C BRIQUETTE MOLDER-Ckb Gus Tsai, RN RN rv Lindsay Harden RN RN 10
--- NOTE | 2023-08-19 20:33 | EDPHYS ---
Physician Documentation [facility] Name: Alexys Conroy Age: 78 yrs Sex: Male : 1945 Arrival Date: 08/19/2023 Time: 19:23 Bed 3 Private MD: ED Physician Fred Zhang Historical: - Allergies: 08/18 19:37 PENICILLINS; rv - PMHx: 19:37 Atrial fibrillation; rv - PSHx: 19:37 left knee; right knee; Right hip; rv - Immunization history: Last tetanus immunization: < 5 years ago. - Infectious Disease History:: Denies. - Social history:: Smoking status: Patient denies any tobacco usage or history of. Vital Signs: 19:29 BP 153 / 83; Pulse 70; Resp 17; Temp 98; Pulse Ox 100% ; Weight 108.41 kg; Height 6 ft. rv 0 in. ; 20:51 BP 152 / 79; Pulse 71; Resp 16; Temp 98; Pulse Ox 99% on R/A; rv 19:29 Body Mass Index 32.41 (108.41 kg, 182.88 cm) rv Ileana Coma Score: 19:29 Eye Response: spontaneous(4). Motor Response: obeys commands(6). Verbal Response: rv oriented(5). Total: 15. 20:51 Eye Response: spontaneous(4). Motor Response: obeys commands(6). Verbal Response: rv oriented(5). Total: 15. Trauma Score (Adult): 19:29 Eye Response: spontaneous(1); Verbal Response: oriented(1); Motor Response: obeys rv commands(2); Systolic BP: > 89 mm Hg(4); Respiratory Rate: 10 to 29 per min(4); Ileana Score: 15; Trauma Score: 12 MDM: 19:48 Patient medically screened. kb 08/18 19:37 Order name: CT Head C Spine; Complete Time: 20:14 rt 08/18 20:14 Order name: Wound Care: clean; Complete Time: 20:23 kb Administered Medications: No medications were administered Disposition Summary: 08/19/23 20:33 Discharge Ordered Notes: Location: Home kb Condition: Stable kb Diagnosis - Unspecified injury of head, initial encounter kb - Fall (on) (from) other stairs and steps kb Followup: kb - With: Emergency Department - When: As needed - Reason: Worsening of condition Discharge Instructions: - Discharge Summary Sheet kb - Head Injury, Adult, [id number] kb Forms: - Medication Reconciliation Form kb - Antibiotic Education kb - Prescription Opioid Use kb - Patient Portal Instructions kb - Leadership Thank You Letter davey Signatures: Dispatcher [employer] Milagros Rhodes, ERIBERTO-Addie WEI-Gus Bassett, RN RN rv
[2023-08-19 21:48] VITALS: BP 152/79; TEMP 98; O2SAT 99
== END 2023-08-19 20:52 | disposition home or self-care (01) ==
LOC: ER 19:23
DX: S01.01XA Laceration without foreign body of scalp, initial encounter (principal); W10.8XXA Fall (on) (from) other stairs and steps, initial encounter; Z88.0 Allergy status to penicillin
CPT/HCPCS: 70450; 72125